=== PATIENT | male | born 1950 | race Caucasian/White ===

== ENCOUNTER 2024-12-19 09:47 | Inpatient (IN) | payer MEDICARE, OTHER ==
[~2024-12-19] VITALS: Ht 175.3 cm; Wt 73.1 kg
[2024-12-19 09:40] VITALS: O2SAT 98
[2024-12-19] MEDS ORDERED: FOLI0.8T2 PO (10:06)
[2024-12-19] MEDS ORDERED: NIFE90TA48 PO (10:06)
[2024-12-19] MEDS ORDERED: NIFE-60 PO (10:06)
[2024-12-19] MEDS ORDERED: SEVE800T8 PO (10:06)
[2024-12-19] MEDS ORDERED: ASPI81TA31 PO (10:06)
[2024-12-19] MEDS ORDERED: CINA30TA2 PO (10:06)
[2024-12-19] MEDS ORDERED: CARV40CP PO (10:06)
[2024-12-19] MEDS ORDERED: ESOM40CA PO (10:06)
[2024-12-19 10:43] LABS: PLATELET COUNT (AUTO) 90 K/uL (152-348); RED BLOOD CELL COUNT(AUTO) 4.02 MIL/uL (4.06-5.63); RED CELL DISTRIBUTION WIDTH 14.6 % (12.1-16.2); WHITE BLOOD COUNT (AUTO) 7.6 K/uL (3.6-10.2)
[2024-12-19 10:51] LABS: CREATININE 4.8 mg/dL (0.6-1.3); SODIUM SERUM 135 mmol/L (136-145); UREA NITROGEN, BLOOD 49 mg/dL (7-18)
[2024-12-19 11:05] LABS: ASPARTATE AMINOTRANSFERASE 79 U/L (15-37); TOTAL PROTEIN, SERUM 6.4 g/dL (6.4-8.2)
[2024-12-19] MEDS ORDERED: ONDANSETRON 4 MG/2 ML VIAL ONE (12:47)
[2024-12-19] MEDS ORDERED: MORPHINE SULFATE 4 MG/1 ML DISP.SYRIN ONE (12:47)
[2024-12-19] MEDS: ONDANSETRON 4 MG/2 ML VIAL IV ONE (12:53)
[2024-12-19] MEDS: MORPHINE SULFATE 4 MG/1 ML DISP.SYRIN IV ONE (12:53)
[2024-12-19] MEDS ORDERED: MAGNESIUM HYDROXIDE 30 ML LIQUID UDC PO PRN (13:15)
[2024-12-19] MEDS ORDERED: ACETAMINOPHEN 325 MG TABLET PO PRN (13:15)
[2024-12-19] MEDS ORDERED: ALBUMIN HUMAN 25% (12.5 GM/50 ML ) BOTTLE IV ONE (13:15)
[2024-12-19] MEDS ORDERED: ONDANSETRON 4 MG/2 ML VIAL IV PRN (13:15)
[2024-12-19] MEDS ORDERED: REMEDY ESSENTIAL ZINC PASTE 113 GM TP PRN (13:15)
[2024-12-19 13:50] VITALS: BP 91/44
[2024-12-19 14:27] VITALS: BP 97/39; TEMP 97.4
[2024-12-19] MEDS: ALBUMIN HUMAN 25% 100 ML IV ONE (14:49)
[2024-12-19 16:03] VITALS: BP_SYST 85; BP_SYST 95; BP_DIAS 47; BP_DIAS 87; TEMP 97.4; O2SAT 94
[2024-12-19] MEDS: SEVELAMER CARBONATE 800 MG TABLET PO SCH (17:30)
[2024-12-19] MEDS: CARVEDILOL 6.25 MG TABLET PO SCH (18:00)
[2024-12-19] MEDS: MIDODRINE HCL 5 MG TABLET PO SCH (18:23)
[2024-12-19 19:00] VITALS: BP 98/46; TEMP 97.6; O2SAT 94
[2024-12-20] VITALS: BP 89/44; TEMP 97.7; O2SAT 92
[2024-12-20] MEDS: FLUTICASONE PROP NASAL SPRAY 16 GM BOTTLE NS SCH (00:15)
[2024-12-20 04:00] VITALS: BP 84/39; TEMP 97.6; O2SAT 92
[2024-12-20] MEDS: MIDODRINE HCL 5 MG TABLET PO ONE (04:48)
[2024-12-20] MEDS: PANTOPRAZOLE SODIUM 40 MG TABLET.DR PO SCH (06:31)
[2024-12-20 07:24] LABS: PLATELET COUNT (AUTO) 81 K/uL (152-348); RED BLOOD CELL COUNT(AUTO) 4.13 MIL/uL (4.06-5.63); RED CELL DISTRIBUTION WIDTH 14.5 % (12.1-16.2); WHITE BLOOD COUNT (AUTO) 8.8 K/uL (3.6-10.2)
[2024-12-20 07:47] LABS: ASPARTATE AMINOTRANSFERASE 119 U/L (15-37); CREATININE 6.0 mg/dL (0.6-1.3); SODIUM SERUM 133 mmol/L (136-145); TOTAL PROTEIN, SERUM 6.3 g/dL (6.4-8.2); UREA NITROGEN, BLOOD 66 mg/dL (7-18)
[2024-12-20 09:20] VITALS: BP 84/39
[2024-12-20] MEDS: CINACALCET HCL 30 MG TABLET PO SCH (09:25)
[2024-12-20] MEDS: FOLIC ACID/VITAMIN B COMP W-C TABLET PO SCH (09:26)
[2024-12-20 10:04] VITALS: BP 105/49; O2SAT 92
[2024-12-20] MEDS: TRAMADOL HCL 50 MG TABLET PO PRN (10:54)
[2024-12-20 11:19] LABS: EOSINOPHILS % (MANUAL) 1 % (0-8); LYMPHOCYTES % (MANUAL) 7 % (20-40); MONOCYTES % (MANUAL) 3 % (2-10); NEUTROPHILS % (MANUAL) 89 % (42-75); PLATELET ESTIMATE DECREASED
[2024-12-20 12:02] VITALS: BP 107/44; TEMP 97.6; O2SAT 98
[2024-12-20] MEDS ORDERED: ALBUMIN HUMAN 25% 50 ML IV PRN (14:15)
[2024-12-20 16:11] VITALS: BP 94/44; TEMP 97.6; O2SAT 98
[2024-12-20] MEDS: HYDROMORPHONE 1 MG/1 ML DISP.SYRIN IV PRN (16:39)
[2024-12-20] MEDS: NORMAL SALINE NASAL 45 ML BOTTLE NS PRN (16:53)
[2024-12-20] MEDS ORDERED: EPINEPHRINE 1:10,000 1 MG/10 ML DISP.SYRIN ONE ×3 (18:30)
[2024-12-20] MEDS ORDERED: CALCIUM CHLORIDE 1 GM/10 ML DISP.SYRIN IVP ONE ×2 (18:30)
[2024-12-20] MEDS ORDERED: SODIUM BICARBONATE 8.4% 50 MEQ/50 ML DISP.SYRIN IV ONE ×2 (18:30)
[2024-12-20] MEDS ORDERED: MIDODRINE HCL 5 MG TABLET PO SCH (22:00)
[2024-12-21] MEDS ORDERED: ASPIRIN 81 MG TAB.CHEW PO SCH (09:00)
== END 2024-12-20 21:24 | DRG 435 ==
LOC: ER 09:47 → TELE3 13:44
PROVIDERS: ADMIT Nurse Practitioner Acute Care; ATTEND Nurse Practitioner Acute Care
PROC: 5A12012 Performance of Cardiac Output, Single, Manual (ICD-10-PCS; principal; 2024-12-20)
DX: C78.7 Secondary malignant neoplasm of liver and intrahepatic bile duct (principal); E43 Unspecified severe protein-calorie malnutrition; N18.6 End stage renal disease; I21.A1 Myocardial infarction type 2; C64.2 Malignant neoplasm of left kidney, except renal pelvis; R18.0 Malignant ascites; J98.11 Atelectasis; I12.0 Hypertensive chronic kidney disease with stage 5 chronic kidney disease or end stage renal disease; R57.8 Other shock; Z99.2 Dependence on renal dialysis; E87.70 Fluid overload, unspecified; Z85.528 Personal history of other malignant neoplasm of kidney; Z88.1 Allergy status to other antibiotic agents; D63.1 Anemia in chronic kidney disease; I35.0 Nonrheumatic aortic (valve) stenosis; K21.9 Gastro-esophageal reflux disease without esophagitis; Z92.21 Personal history of antineoplastic chemotherapy; E88.09 Other disorders of plasma-protein metabolism, not elsewhere classified; Z79.899 Other long term (current) drug therapy; Z90.5 Acquired absence of kidney; Z91.158 Patient's noncompliance with renal dialysis for other reason
CPT/HCPCS: 36415; 70030-TC; 71045; 83605; 83735; 84100; 84484; 85025; 85730; 86850; 86900; 86901; 87040; 93307; A4606; A4663; G0378; J0169; J1171; J2270; J2405; J3490; J3535; P9047